=== PATIENT | male | born 2000 | race Caucasian/White ===

== ENCOUNTER 2019-02-15 01:32 | Emergency (ER) | payer OTHER ==
[~2019-02-15] VITALS: Ht 177.8 cm; Wt 77.3 kg
[2019-02-15 01:36] VITALS: BP 136/93; TEMP 99.3
[2019-02-15] MEDS ORDERED: ZYRTEC 10MG10 MG PO (01:52)
[2019-02-15 02:04] LABS: STREP SCREEN NEGATIVE
[2019-02-15 02:33] VITALS: PULSE 103
[2019-02-15] MEDS ORDERED: ZITHROMAX 250M250 MG PO (02:36)
== END 2019-02-15 02:46 | disposition home or self-care (01) ==
LOC: COL.ER 01:32
PROVIDERS: Nurse Practitioner
DX: J20.9 Acute bronchitis, unspecified (principal); F41.9 Anxiety disorder, unspecified